=== PATIENT | male | born 1985 | race African-American/Black ===

== ENCOUNTER 2016-11-28 16:59 | Emergency (ER) | payer OTHER ==
[~2016-11-28] VITALS: Ht 175.3 cm; Wt 79.4 kg
[2016-11-28 17:03] VITALS: BP 128/77
[2016-11-28] MEDS ORDERED: MOBIC7.5 MG PO (17:16)
[2016-11-28] MEDS ORDERED: CYCLOBENZAPRINE5 MG PO (17:16)
[2016-11-28] MEDS ORDERED: NORCO 5-325 TA1 EACH PO (17:24)
== END 2016-11-28 17:56 | disposition home or self-care (01) ==
LOC: ER 16:59
DX: M62.838 Other muscle spasm (principal); S16.1XXA Strain of muscle, fascia and tendon at neck level, initial encounter; V89.2XXA Person injured in unspecified motor-vehicle accident, traffic, initial encounter; Y93.I9 Activity, other involving external motion; Y92.89 Other specified places as the place of occurrence of the external cause; Y99.8 Other external cause status

== ENCOUNTER 2017-12-18 16:05 | Emergency (ER) | payer OTHER ==
[~2017-12-18] VITALS: Ht 205.7 cm; Wt 86.2 kg
[~2017-12-18 16:05] MED LIST: CYCLOBENZAPRINE5 MG PO; MOBIC7.5 MG PO; NORCO 5-325 TA1 EACH PO
[2017-12-18 16:26] VITALS: BP 125/72
== END 2017-12-18 18:51 ==
LOC: ER 16:05
DX: S31.000A Unspecified open wound of lower back and pelvis without penetration into retroperitoneum, initial encounter (principal); Z90.89 Acquired absence of other organs; W34.00XA Accidental discharge from unspecified firearms or gun, initial encounter; Y92.810 Car as the place of occurrence of the external cause; Y93.89 Activity, other specified; Y99.8 Other external cause status